=== PATIENT | female | born 1980 | race Asian ===

== ENCOUNTER 2016-07-28 16:28 | Emergency (ER) | payer MEDICAID, MEDICARE ==
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
== END 2016-07-28 18:37 | disposition home or self-care (01) ==
LOC: ER 16:28
DX: S30.0XXA Contusion of lower back and pelvis, initial encounter (principal); Z88.6 Allergy status to analgesic agent; Z88.8 Allergy status to other drugs, medicaments and biological substances; V29.9XXA Motorcycle rider (driver) (passenger) injured in unspecified traffic accident, initial encounter; Y93.89 Activity, other specified; Y92.410 Unspecified street and highway as the place of occurrence of the external cause; Y99.8 Other external cause status
CPT/HCPCS: 99284; 72131; 96372; J2930; Z7502